=== PATIENT | female | born 1990 | race Caucasian/White ===

== ENCOUNTER 2020-05-27 10:10 | Emergency (ER) | payer SELFPAY ==
[~2020-05-27] VITALS: Ht 167.6 cm; Wt 76.4 kg
[2020-05-27 10:16] VITALS: Ht 167.6 cm; Wt 76.4 kg
[2020-05-27] MEDS ORDERED: LEVOFLOXACIN500 MG PO (10:17)
[2020-05-27] MEDS ORDERED: PREDNISONE20 MG PO (10:18)
[2020-05-27 10:46] LABS: BASOPHILS 0.3 % (0-2); EOSINOPHILS 0 % (0-7); HEMATOCRIT 43.7 % (36.0-48.0); HEMOGLOBIN 14.8 g/dL (12-16); LYMPHOCYTES 43.7 % (15-50); MCHC 33.9 g/dL (31.0-37.0); MCV 91.6 fL (80.0-100.0); MEAN PLATELET VOLUME 10.5 fL (7.4-10.4); MONOCYTES 12.9 % (2-11); NEUTROPHILS 43.1 % (40-80); PLATELET COUNT 147 10x3/uL (130-400); RBC 4.77 10x6/uL (4.00-5.40); RDW 12.4 % (11.5-14.5)
[2020-05-27 10:51] LABS: APTT 28.5 SECONDS (22.8-39.4); INR 0.99 (0.85-1.17)
[2020-05-27 10:53] LABS: CALC OSMOLALITY 283 mosm/kg (275-300); CALCIUM 9.1 mg/dL (8.5-10.1); CARBON DIOXIDE 28.8 mmol/L (21.0-32.0); CHLORIDE - SERUM 106 mmol/L (98-107); CREATININE - SERUM 0.9 mg/dL (0.6-1.3); GLUCOSE 95 mg/dL (74-106); POTASSIUM - SERUM 3.3 mmol/L (3.5-5.1); SODIUM 143 mmol/L (136-145); UREA NITROGEN 9 mg/dL (7-18); eGFR NON AFRICAN AMERICAN 77 mL/min (90-120)
[2020-05-27 11:09] LABS: ALBUMIN 4.2 g/dL (3.4-5.0); ALKALINE PHOSPHATASE 74 U/L (30-120); ALT (SGPT) 12 U/L (10-68); BILIRUBIN - TOTAL 0.33 mg/dL (0.2-1.3); CKMB 0.5 U/L (0.0-3.6); CREATINE KINASE 20 UL (21-215); PRO BNP 51 pg/mL (0-125); PROTEIN - SERUM 7.4 g/dL (6.4-8.2)
[2020-05-27 11:10] LABS: TROPONIN-I < 0.017 ng/mL (0.000-0.060)
[2020-05-27] MEDS ORDERED: TESSALON PERLE100 MG PO (11:46)
[2020-05-27 12:23] VITALS: BP 113/66
== END 2020-05-27 12:24 | disposition home or self-care (01) ==
LOC: D.ER 10:10
PROVIDERS: Family Medicine
DX: R05 Cough (principal); J06.9 Acute upper respiratory infection, unspecified; Z20.828 Contact with and (suspected) exposure to other viral communicable diseases; R06.02 Shortness of breath; R50.9 Fever, unspecified; R68.89 Other general symptoms and signs